=== PATIENT | male | born 1985 | race Caucasian/White ===

== ENCOUNTER 2018-11-25 09:50 | Outpatient (CLI) | payer OTHER ==
--- NOTE | 2018-11-25 13:32 | MRI ---
MRI RIGHT SHOULDER 11/25/18 PROVIDED CLINICAL HISTORY: Right shoulder pain. FINDINGS: The components of the rotator cuff appear intact. The long head biceps tendon appears intact and norm ally located. The glenoid labrum and glenohumeral articular cartilage are suboptimally evaluated in the absence of joint distention but appear grossly normal. The amount of fluid within the glenohumeral joint appears physiologic. There is greater than physiolo gic subacromial/subdeltoid bursal fluid. Acromioclavicular joint osteoarthrosis is noted with mild st ress related periarticular marrow edema. Regional marrow and muscular signal appear otherwise unrema rkable. IMPRESSION: 1. No evidence for rotator cuff tear. 2. Greater than physiologic subacromial, subdeltoid bursa fluid may reflect mild bursitis. 3. Acromioclavicular joint osteoarthritis. POS: C
== END 2018-11-25 09:51 | disposition home or self-care (01) ==
LOC: MRI 09:50
PROVIDERS: ATTEND Family Medicine
DX: S46.991D Other injury of unspecified muscle, fascia and tendon at shoulder and upper arm level, right arm, subsequent encounter (principal); M75.51 Bursitis of right shoulder; M19.011 Primary osteoarthritis, right shoulder

== ENCOUNTER 2019-04-30 06:56 | Day surgery (SDC) | payer OTHER ==
[~2019-04-30 06:56] MED LIST: Bupivacaine 0.25% HCL 30 ML VIAL ONE; Lidocaine 1% w/Epinephrine 1:100K 20 ML VIAL ONE
[2019-04-30] MEDS ORDERED: Midazolam HCl 2 mg/2 ml Vial ONE ×2 (07:15→07:43)
[2019-04-30] MEDS ORDERED: Fentanyl 100 MCG/2 ML VIAL ONE ×2 (07:15→07:43)
[2019-04-30 07:57] LABS: #Eosinphils 0.2 thou/uL (0.0-0.7); #Lymphocytes 1.4 thou/uL (1.20-3.40); #Monocytes 0.6 thou/uL (0.11-0.59); #Neutrophils 4.8 thou/uL (1.40-6.50); %Basophils 0.6 % (0.0-1.0); %Eosinophils 3.1 % (0.0-10.0); %Lymphocytes 19.4 % (21.0-51.0); %Monocytes 8.7 % (0.0-10.0); %Neutrophils 68.2 % (42.0-75.0); Hemoglobin 15.6 g/dL (14.0-18.0); Mean Corpuscular HGB CONC 34.4 g/dL (32.0-36.0); Mean Corpuscular Hemoglobin 29.6 pg (27.0-31.0); Mean Corpuscular Volume 86.2 fL (78.0-98.0); Mean Platelet Volume 8.2 fL (7.4-10.4); Platelet Count 217 thou/uL (130-400); RBC Distribution Width 11.9 % (11.5-14.5); Red Blood Cell (RBC) Count 5.26 mill/uL (4.70-6.10); White Blood Cell (WBC) Count 7.1 thou/uL (4.8-10.8)
[2019-04-30] MEDS ORDERED: Clindamycin/D5W 900 mg/50 ml Premix Bag ONE (08:00)
[2019-04-30 08:11] LABS: Anion Gap 12 mmol/L (10-20); BUN (Urea Nitrogen) 25 mg/dL (8.9-20.6); Calc. Creatinine Clearance 0 mL/min (70-130); Calcium 9.4 mg/dL (7.8-10.44); Carbon Dioxide 26 mmol/L (22-29); Chloride 108 mmol/L (98-107); Estimated GFR-MDRD Greater than 90; Glucose 104 mg/dL (70-105); Potassium 3.7 mmol/L (3.5-5.1); Sodium 142 mmol/L (136-145)
[2019-04-30] MEDS ORDERED: Ondansetron PF 4 MG/2 ML Vial IVP PRN (08:51)
[2019-04-30] MEDS ORDERED: Ropivacaine 0.2% 550 ML 550 ML NERVE BLCK SCH (08:51)
[2019-04-30] MEDS ORDERED: Ketorolac Tromethamine 30 MG/ML VIAL IVP PRN (08:51)
[2019-04-30] MEDS ORDERED: HYDROcodone/Acetaminophen 5/325 mg Tablet PO PRN ×2 (08:51)
[2019-04-30] MEDS ORDERED: Promethazine HCl 25 MG/ML VIAL IM PRN (08:51)
[2019-04-30] MEDS ORDERED: Zolpidem Tartrate 5 MG TAB PO PRN (08:51)
[2019-04-30] MEDS ORDERED: traMADol HCl 50 MG TAB PO PRN ×2 (08:51)
[2019-04-30] MEDS ORDERED: Ondansetron PF 4 MG/2 ML Vial ONE (10:03)
[2019-04-30] MEDS ORDERED: Ropivacaine 0.2% HCl/PF (40 MG/20 ML VIAL) ONE (10:03)
[2019-04-30] MEDS ORDERED: Ropivacaine 0.5% HCl/PF (150 MG/30 ML VIAL) ONE (10:03)
[2019-04-30] MEDS ORDERED: Lidocaine 1% PF 5 ML VIAL ONE (10:03)
[2019-04-30] MEDS ORDERED: Dexamethasone 20 MG/5 ML VIAL ONE (10:03)
[2019-04-30] MEDS ORDERED: Rocuronium Bromide 10 MG/ML (10ML VIAL) ONE (10:03)
[2019-04-30] MEDS ORDERED: PROPOFOL 200 MG/20 ML VIAL ONE (10:03)
[2019-04-30] MEDS ORDERED: Promethazine HCl 25 MG/ML VIAL ONE (11:22)
--- NOTE | 2019-04-30 12:27 | OP ---
DATE OF PROCEDURE: 04/30/2019 PREOPERATIVE DIAGNOSES: 1. Large tearing in the posterior labrum and superior tearing in the anterior labrum of the right shoulder. 2. Impingement syndrome of the right shoulder. POSTOPERATIVE DIAGNOSES: 1. Large tearing in the posterior labrum and superior tearing in the anterior labrum of the right shoulder. 2. Impingement syndrome of the right shoulder. PROCEDURES PERFORMED: 1. Arthroscopy of the right shoulder with repair of large tearing of the posterior labrum and repair of the anterior labrum. 2. Subacromial decompression. ANESTHESIA: General. TECHNIQUE: The patient was given preoperative IV antibiotics. He was given a supraclavicular block by Anesthesia prior to surgery. He was taken to the operating room, placed in supine position. Satisfactory general anesthesia was performed. The patient was then placed in the left lateral decubitus position. All bony prominences were well padded. The right upper extremity was placed in 15 pounds of traction. The right shoulder was sterilely prepped and draped in usual fashion. The right shoulder was scoped through the posterior, anterior, and lateral portals. Upon entering the shoulder joint, the patient was noted to have tearing in the anterior labrum. Arthrex 2.4 anchor was used with #2 FiberWire to repair the anterior labrum. The posterior labrum had tearing along the inferior, central, and superior aspect of the posterior labrum and this was repaired using four 2.9 anchors. The biceps tendon was normal and intact. There was no arthritis in the shoulder joint. The subacromial space was then entered. There was significant synovitis. Partial synovectomy was performed. The underlying rotator cuff appeared normal. The subacromial space was very tight, and decompression was performed using the surface ArthroWand to remove the soft tissue from under the acromion, and a high-speed bur was used to smooth and thin down the undersurface of the acromion. The instruments were then removed, and the portals were closed with 3-0 Rapide. Sterile dressing was applied. The patient was taken out of traction, placed in a supine position. He was awakened, extubated, and transferred to recovery in stable condition. A shoulder immobilizer was applied. Postoperative wound instructions were provided. He should keep his shoulder mobilizer on. He may take it off to change the dressing. He should avoid any active range of motion of the right shoulder for a month. DISCHARGE MEDICATIONS: Tylenol No. 4 one every 4 to 6 hours as needed for pain #40 with one refill. Follow my office next week. Job ID: [id number]
[2019-04-30] MEDS ORDERED: HYDROcodone/Acetaminophen 5/325 mg Tablet ONE (13:40)
--- NOTE | 2019-05-03 14:21 | EKG ---
Test Reason : PREOP Blood Pressure : / mmHG Vent. Rate : 073 BPM Atrial Rate : 073 BPM P-R Int : 126 ms QRS Dur : 106 ms QT Int : 384 ms P-R-T Axes : 070 088 075 degrees QTc Int : 423 ms Normal sinus rhythm Early repolarization Normal ECG No previous ECGs available Confirmed by JOYCE PRESCOTT (2) on 05/03/2019 2:21:21 PM Referred By: TOSIN Confirmed By:JOYCE PRESCOTT
== END 2019-04-30 14:30 | disposition home or self-care (01) ==
LOC: SDC 06:56
PROVIDERS: ATTEND Orthopaedic Surgery
PROC: 0MM14ZZ Reattachment of Right Shoulder Bursa and Ligament, Percutaneous Endoscopic Approach (ICD-10-PCS; principal; 2019-04-30)
PROC: 3E0T3BZ Introduction of Anesthetic Agent into Peripheral Nerves and Plexi, Percutaneous Approach (ICD-10-PCS; principal; 2019-04-30)
PROC: 0RNJ4ZZ Release Right Shoulder Joint, Percutaneous Endoscopic Approach (ICD-10-PCS; principal; 2019-04-30)
DX: S43.491A Other sprain of right shoulder joint, initial encounter (principal); M75.41 Impingement syndrome of right shoulder; G89.18 Other acute postprocedural pain; F17.290 Nicotine dependence, other tobacco product, uncomplicated; Z88.0 Allergy status to penicillin; Z88.1 Allergy status to other antibiotic agents; X50.0XXA Overexertion from strenuous movement or load, initial encounter; Y99.0 Civilian activity done for income or pay
CPT/HCPCS: 36415; 80048; 85025; 93005; 93010; A4306; C1713; J1100; J2001; J2250; J2405; J2550; J2704; J2795; J3010; J3490; S0020